=== PATIENT | male | born 1975 | race Caucasian/White ===

== ENCOUNTER 2019-04-28 06:28 | Emergency (ER) | payer SELFPAY ==
--- NOTE | 2019-04-28 06:40 | ED.PDOC ---
History of Present Illness - General Time Seen by Provider: 04/28/19 06:33 - History of Present Illness Initial Comments: 43 yo male presents to ED for spider bite. States he did not see anything bite him, but while in bed yesterday at 11 AM felt something bite him on left inner thigh. The area has had worsening redness and itching since. Denies fever, chills, NVD, abdominal pain. Has been ambulatory w/o difficulty. Has not taken anything for the pain. Severity: moderate Improving Factors: nothing Worsening Factors: nothing Home Medications: Ambulatory Orders Cephalexin Monohydrate [Keflex] 500 mg PO QID 10 Days #40 cap 04/28/19 Sulfamethoxazole-Trimethoprim [Bactrim Ds 800-160 mg] 1 tab PO BID 10 Days #20 tab 04/28/19 Review of Systems - Review of Systems Constitutional: Denies: chills, fever, weakness EENTM: Denies: nose congestion, throat swelling Respiratory: Denies: cough, short of breath, wheezing Cardiology: Denies: chest pain, palpitations, syncope Gastrointestinal/Abdominal: Denies: abdominal pain, diarrhea, nausea, vomiting Musculoskeletal: Denies: back pain, joint pain Skin: States: see HPI All other Systems: Reviewed and Negative Physical Exam - Physical Exam General Appearance: Alert, Comfortable, No apparent distress Ears, Nose, Throat: normal pharynx Neck: non-tender, full range of motion, supple Respiratory: chest non-tender, lungs clear, normal breath sounds, no respiratory distress, no accessory muscle use Cardiovascular/Chest: normal peripheral pulses, no edema Gastrointestinal/Abdominal: non tender, soft, other - ND, no guarding Back Exam: no CVA tenderness, no vertebral tenderness Extremity: other - There is a 8x10 cm area of erythema and warmth to left medial thigh. Does not cross the inguinal crease. There is no fluctuance or induration. Calf NTTP Neurologic: no motor/sensory deficits, alert, normal mood/affect Progress - Progress Progress: 04/28/19 06:42 Pt presents with erythema to left thigh x 20 hours. No fever. No induration or fluctuance. There is no sign of abscess at this time. Will treat with Bactrim and Keflex and f/u with pcp in 1-2 days for recheck. srp given. Departure - Departure Clinical Impression: Cellulitis of left thigh Time of Disposition: 06:44 Disposition: Discharge to Home or Self Care Condition: Good Departure Forms: ED Discharge - Pt. Copy, Patient Portal Self Enrollment Instructions: Cellulitis (Skin Infection), Adult (DC) Diet: resume usual diet Activity: increase activity as tolerated Prescriptions: Cephalexin Monohydrate [Keflex] 500 mg PO QID 10 Days #40 cap Sulfamethoxazole-Trimethoprim [Bactrim Ds 800-160 mg] 1 tab PO BID 10 Days #20 tab Home Medications: Ambulatory Orders Cephalexin Monohydrate [Keflex] 500 mg PO QID 10 Days #40 cap 04/28/19 Sulfamethoxazole-Trimethoprim [Bactrim Ds 800-160 mg] 1 tab PO BID 10 Days #20 tab 04/28/19
[2019-04-28 06:47] VITALS: BP 170/94; TEMP 96.5; O2SAT 98
[2019-04-28] MEDS: CLINDAMYCIN PHOSPHATE 150 MG/ML VIAL IM ONE (06:49)
== END 2019-04-28 07:05 | disposition home or self-care (01) ==
LOC: ER 06:28
DX: L03.116 Cellulitis of left lower limb (principal)